=== PATIENT | female | born 1985 | race Two or more races ===

== ENCOUNTER 2018-06-17 17:12 | Emergency (ER) | payer OTHER ==
[~2018-06-17] VITALS: Ht 162.6 cm; Wt 63.5 kg
[2018-06-17 18:29] LABS: Basophils # (auto) 0 uL; Basophils % (auto) 0.6 % (0.0-2.0); Eosinophils # (auto) 0.2 uL; Eosinophils % (auto) 3.1 % (0.0-7.0); Hematocrit 39.7 % (36.0-46.0); Hemoglobin 13.6 g/dL (12.2-16.2); Lymphocytes # (auto) 1.4 uL; Lymphocytes % (auto) 18.6 % (10.0-50.0); Mean Corpuscular Hemoglobin 32.6 pg (28.0-32.0); Mean Corpuscular Hgb Conc. 34.3 g/dL (32.0-36.0); Monocytes # (auto) 0.5 uL; Monocytes % (auto) 6.7 % (0.0-12.0); Neutrophils # (auto) 5.5 uL; Platelet Count (auto) 153 10^3/uL (140-450); Red Blood Cells 4.18 10^6/uL (4.0-5.20); Red Cell Distribution Width 12.6 % (11.8-14.3); White Blood Cell 7.7 10^3/uL (4.4-10.8)
[2018-06-17 21:30] VITALS: BP 128/52
== END 2018-06-17 21:40 | disposition home or self-care (01) ==
LOC: ER 17:12
DX: O99.331 Smoking (tobacco) complicating pregnancy, first trimester (principal); O26.891 Other specified pregnancy related conditions, first trimester; Z3A.01 Less than 8 weeks gestation of pregnancy; Z88.0 Allergy status to penicillin
CPT/HCPCS: 36415; 76801; 84702; 85025

== ENCOUNTER 2018-10-27 17:27 | Emergency (ER) | payer MEDICAID, OTHER ==
[~2018-10-27] VITALS: Ht 162.6 cm; Wt 68.9 kg
[2018-10-27 17:45] VITALS: BP 112/64
== END 2018-10-27 21:55 | disposition home or self-care (01) ==
LOC: ER 17:27
DX: O26.892 Other specified pregnancy related conditions, second trimester (principal); S39.012A Strain of muscle, fascia and tendon of lower back, initial encounter; O99.332 Smoking (tobacco) complicating pregnancy, second trimester; Z3A.26 26 weeks gestation of pregnancy; X58.XXXA Exposure to other specified factors, initial encounter; Y93.89 Activity, other specified; Y99.8 Other external cause status; Y92.89 Other specified places as the place of occurrence of the external cause
CPT/HCPCS: 93970

== ENCOUNTER 2021-02-01 20:17 | Emergency (ER) | payer MEDICAID ==
[~2021-02-01] VITALS: Ht 162.6 cm; Wt 70.5 kg
[2021-02-01 22:09] LABS: Basophils # (auto) 0 10 ^3/uL (0-0.2); Basophils % (auto) 0.4 % (0.0-2.0); Eosinophils # (auto) 0.2 10 ^3/uL (0-0.8); Eosinophils % (auto) 2.5 % (0.0-7.0); Hematocrit 39.6 % (36.0-46.0); Hemoglobin 13.4 g/dL (12.2-16.2); Lymphocytes # (auto) 1.9 10 ^3/uL (0.4-5.4); Mean Corpuscular Hemoglobin 31.4 pg (28.0-32.0); Mean Corpuscular Hgb Conc. 33.9 g/dL (32.0-36.0); Mean Corpuscular Volume 92.6 fL (80.0-100.0); Monocytes # (auto) 0.6 10 ^3/uL (0-1.3); Monocytes % (auto) 6.3 % (0.0-12.0); Neutrophils # (auto) 6.2 10 ^3/uL (1.6-8.6); Neutrophils % (auto) 69.8 % (37.0-80.0); Red Blood Cells 4.27 10^6/uL (4.0-5.20); Red Cell Distribution Width 12.4 % (11.8-14.3); White Blood Cell 8.9 10^3/uL (4.4-10.8)
[2021-02-01 22:26] LABS: Albumin 3.3 g/dL (3.4-5.0); Calcium 8.8 mg/dL (8.5-10.1); Potassium 3.9 mmol/L (3.5-5.1)
[2021-02-01 22:28] LABS: BUN/Creatinine Ratio 21.2
[2021-02-01 22:31] LABS: Bilirubin, Total 0.1 mg/dL (0.2-1.0)
[2021-02-02] VITALS: BP 112/72
== END 2021-02-02 00:24 | disposition left against medical advice (07) ==
LOC: ER 20:20
DX: O26.891 Other specified pregnancy related conditions, first trimester (principal); R10.9 Unspecified abdominal pain; R53.1 Weakness; Z3A.01 Less than 8 weeks gestation of pregnancy; Z53.21 Procedure and treatment not carried out due to patient leaving prior to being seen by health care provider
CPT/HCPCS: 36415; 80053; 84702; 85025

== ENCOUNTER 2024-04-24 11:11 | Inpatient (IN) | payer MEDICAID ==
[~2024-04-24] VITALS: Ht 162.6 cm; Wt 69.4 kg
--- NOTE | 2024-04-24 11:42 | ED.PDOC ---
GI ASSESSMENT HPI Comments HPI: Poor Historian. 39-year-old female presents to emergency department for evaluation the blood in his stool that started yesterday and got worse today. She showed me a picture of brown stool that is mixed with blood in and partially melanotic. Denies any associated abdominal pain. VITALS: Temp: 97.6 F RR: 18 02 sat : 99 % on room air HR: 76 BP: 129/59 PMH: denies PSH: uterine rupture Social history: denies tobacco use, denies ETOH use, endorses drug use (marijuana) Medications: denies, Allergies: penicillins REVIEW OF SYSTEMS: CONSTITUTIONAL: Denies acute: fever, diaphoresis, chills, generalized weakness. HEAD: Denies acute: headache, photophobia Eyes: Denies acute: Double vision, vision loss, eye pain, eye discharge. EARS: Denies acute: tinnitus, hearing loss, ear discharge, ear pain, THROAT: Denies acute: sore throat, swelling, difficulty swallowing , pain with swallowing, change in voice. NECK: Denies acute: neck pain, neck swelling, stiff neck. HEART: Denies acute : chest pain, palpitations, LUNGS: Denies acute: SOB, wheezing, cough, hemoptysis ABDOMEN: Denies acute: abdominal pain, Nausea, Vomiting, diarrhea, , hematemesis, SKIN: Denies acute: rash, redness, lesions, itchiness. EXTREMITIES: Denies acute: calf pain, numbness, tingling, weakness, denies pain in extremity. Denies acute: Low back pain. Neuro: Denies acute: focal neurological deficit, motor or sensory focal neurological deficit, tremors, seizure like activity, confusion, dizziness, change in mental status, loss of bowel or bladder function, cauda equina like symptoms. : Denies acute: dysuria, hematuria, flank pain, increase in urinary frequency. PSYCH: Denies acute: hallucination, suicidal ideation, homicidal ideation. FEMALE: Denies acute: abnormal vaginal bleeding, foul odor, unusual discharge. PHYSICAL EXAM: General: no acute distress, awake and alert. Head: normocephalic, atraumatic. Neck: supple, trachea is midline, no swelling. Throat: Normal phonation. Eyes:, no erythema, no purulent discharge, no proptosis, no icterus. Heart: regular rate, regular rhythm, no significant murmur appreciated. Lungs: no apparent respiratory distress, Able to speak in full sentences. No wheezing, no rhonchi, no crackles. No stridors Clear to auscultation bilaterally. Abdomen: non tender to palpation, non distended, soft, no guarding, no rebound, + bowel sounds. Neuro: Awake, Alert, oriented to name, self, situation, follows commands GCS=15. Speech is normal. Skin: no petechia, no purpura, no cyanosis, non-pale, not jaundice. Lower extremities: --no - Pitting edema no deformity, no focal swelling, no calf TTP. Makes eye contact. moves all four extremities. Face: no apparent facial droop. Ambulating in the ED independently. 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 Was a procedure done?: No X-Ray, Labs, Meds, VS Vital Signs Date Time Temp Pulse Resp B/P (MAP) Pulse Ox O2 Delivery O2 Flow Rate FiO2 04/24/24 14:40 67 18 163/92 (115) 04/24/24 11:51 97.4 76 16 168/65 (99) 98 97.4 04/24/24 11:51 76 16 98 Room Air 04/24/24 11:33 97.6 76 18 129/59 (82) 99 Lab Test 04/24/24 11:45 04/24/24 11:35 Range/Units White Blood Count 5.6 4.4-10.8 10^3/uL Red Blood Count 4.32 4.0-5.20 10^6/uL Hemoglobin 13.0 12.2-16.2 g/dL Hematocrit 39.4 36.0-46.0 % Mean Corpuscular Volume 91.1 80.0-100.0 fL Mean Corpuscular Hemoglobin 30.1 28.0-32.0 pg Mean Corpuscular Hemoglobin Concent 33.1 32.0-36.0 g/dL Red Cell Distribution Width 13.3 11.8-14.3 % Platelet Count 161 140-450 10^3/uL Mean Platelet Volume 8.2 6.9-10.8 fL Neutrophils (%) (Auto) 70.2 37.0-80.0 % Lymphocytes (%) (Auto) 20.2 10.0-50.0 % Monocytes (%) (Auto) 5.3 0.0-12.0 % Eosinophils (%) (Auto) 3.5 0.0-7.0 % Basophils (%) (Auto) 0.8 0.0-2.0 % Neutrophils # (Auto) 3.9 1.6-8.6 10 ^3/uL Lymphocytes # (Auto) 1.1 0.4-5.4 10 ^3/uL Monocytes # (Auto) 0.3 0-1.3 10 ^3/uL Eosinophils # (Auto) 0.2 0-0.8 10 ^3/uL Basophils # (Auto) 0 0-0.2 10 ^3/uL Nucleated Red Blood Cells 0.2 % Sodium Level 139 136-145 mmol/L Potassium Level 4.3 3.5-5.1 mmol/L Chloride Level 109 H 98-107 mmol/L Carbon Dioxide Level 24 20-31 mmol/L Anion Gap 6 5-15 Blood Urea Nitrogen 10 9-23 mg/dL Creatinine 0.74 0.550-1.02 mg/dL Glomerular Filtration Rate Calc 105 >90 mL/min BUN/Creatinine Ratio 13.5 10.0-20.0 Serum Glucose 98 74-106 mg/dL Calcium Level 9.5 8.7-10.4 mg/dL Magnesium Level 2.1 1.6-2.6 mg/dL Total Bilirubin 0.5 0.2-1.0 mg/dL Aspartate Amino Transferase (AST) 12 L 13-40 U/L Alanine Aminotransferase (ALT) 12 7-40 U/L Alkaline Phosphatase 78 46-116 U/L Total Protein 7.3 5.7-8.2 g/dL Albumin 4.7 3.2-4.8 g/dL Beta HCG, Quantitative 1.6 1.5-4.2 mIU/mL Urine Color Light-yellow Yellow Urine Clarity Clear Clear Urine pH 6.5 5.0-9.0 Urine Specific [place] 1.015 1.001-1.035 Urine Protein Negative Negative Urine Ketones Negative Negative Urine Blood Negative Negative /uL Urine Nitrite Negative Negative Urine Bilirubin Negative Negative Urine Urobilinogen Normal Negative mg/dL Urine Leukocyte Esterase Negative Negative /uL Urine RBC 1 0 - 4 /hpf Urine WBC 1 0 - 5 /hpf Urine Squamous Epithelial Cells Few <5 /hpf Urine Bacteria Mod H None Seen /hpf Urine Mucus Few None Seen Urine Glucose Normal Normal mg/dL Current Medications Medications (Trade) Dose Ordered Sig/Nelda Route Start Time Stop Time Status Last Admin Pantoprazole Sodium (Protonix) 40 mg ONCE ONCE IV 04/24/24 11:45 04/24/24 11:46 DC 04/24/24 11:45 Sodium Chloride 1,000 ml @ 1,000 mls/hr Q1H ONCE IV 04/24/24 11:45 04/24/24 12:44 DC 04/24/24 11:55 [place] [id number] Ph: [phone] DIAGNOSTIC IMAGING Diagnostic Imaging Report : [id number] Signed PATIENT: ESPERANZA GREENE ACCT: [id number] UNIT: [id number] : 1985 LOC: ER ROOM / BED: / AGE / SEX: 39 / F ADM STATUS: REG ER SERVICE 1139 ORDERING PHYSICIAN: MYLES FLOR DO PROCEDURE(s): ABPL - CT AB PEL WO CON-NO ORAL OR IV REASON: RECTAL BLEED ORDER NUMBER(s): [id number], ACCESSION NUMBER(s): [id number] CT ABDOMEN AND PELVIS WITHOUT CONTRAST CLINICAL HISTORY: RECTAL BLEED TECHNIQUE: Multiple contiguous axial images of the abdomen and pelvis without intravenous contrast. The images were reformatted degenerate coronal and sagittal reconstructions. All CT scans at this medical facility are performed using dose modulation techniques as appropriate to a performed exam including the following:Automated exposure control was utilized; adjustment of the MA and/or KV according to patient size; and use of iterative reconstruction technique. Radiation Dose Information: CT Dose: CTDI volume is 11.82 mGy. Dose-length product is 607.22 mGy*cm Comparison: None FINDINGS: Evaluation of the abdomen and pelvis is limited without intravenous contrast. The liver, gallbladder, pancreas, kidneys, adrenal glands, and spleen appear within normal limits. There is no gross evidence of abdominal lymphadenopathy. There is no free fluid or free air. The stomach grossly appears unremarkable. The small and large bowel loops demonstrate normal caliber and appear within normal limits.. The abdominal aorta and IVC appear within normal limits. The bladder appears unremarkable for the degree of distention. Pelvic organ appears within normal limits. There is no gross evidence of a pelvic mass. There is no free fluid collection. Lung bases are clear. There is no acute osseous abnormality. IMPRESSION: 1. There is no acute process in the abdomen and pelvis. HS:Y ATED BY: JORGE COLLADO MD DICTATED DATE/TIME: 04/24/24 130 SIGNED BY: JORGE COLLADO MD SIGNED DATE/TIME: 04/24/24 1306 CC: Patient Education/Counseling: Diagnosis, Treatment Family Education/Counseling: No Family Present Comments MDM: Patient presented with the above HPI.----- blood in stool-- -workup was initiated. patient was found with the above mentioned diagnosis. the following medications were ordered: IV fluids, pantoprazole the following tests were ordered: CT abdomen and pelvis without contrast, stool occult blood, beta HCG, type and screen, magnesium, UA, CBC, CMP Patient ED course and VS have been stabilized. Patient has been reassessed in the ED and remained in a stable condition. Patient has been observed in the ED adequate length of time to insure improvement/stability. Escalation of care considered: Consideration of escalation to observation or admission. patient was ADMITTED to the medicine team for further evaluation and treatment of their presentation. All the reports of any imaging studies that were ordered by myself were reviewed by myself. Departure 1 Departure Time of Disposition: 14:15 Impression: Primary Impression: GI bleed Additional Impression: Rectal bleed Disposition: ADMITTED INPATIENT Admit to: [facility] Condition: Guarded Discharged With: Self I personally scribed for MYLES FLOR DO ([facility]) on 04/24/24 at 11:42. Electronically submitted by Rere Morrison ([facility]). I personally scribed for MYLES FLOR DO ([facility]) on 04/24/24 at 12:08. Electronically submitted by Rere Morrison ([facility]). I personally scribed for MYLES FLOR DO ([facility]) on 04/24/24 at 12:11. Electronically submitted by Rere Morrison ([facility] I personally scribed for MYLES FLOR DO ([facility]) on 04/24/24 at 18:10. Electronically submitted by Rere Morrison ([facility] MYLES FLOR DO Apr 24, 2024 11:42
[2024-04-24] MEDS: PANTOPRAZOLE 40 MG/10 ML VIAL INJ IV ONE (11:45)
[2024-04-24] MEDS: SODIUM CHLORIDE 0.9% 1,000 ML IV ONE (11:55)
[2024-04-24 11:57] LABS: Basophils # (auto) 0 10 ^3/uL (0-0.2); Basophils % (auto) 0.8 % (0.0-2.0); Eosinophils # (auto) 0.2 10 ^3/uL (0-0.8); Eosinophils % (auto) 3.5 % (0.0-7.0); Hematocrit 39.4 % (36.0-46.0); Lymphocytes # (auto) 1.1 10 ^3/uL (0.4-5.4); Lymphocytes % (auto) 20.2 % (10.0-50.0); Mean Corpuscular Hemoglobin 30.1 pg (28.0-32.0); Mean Corpuscular Hgb Conc. 33.1 g/dL (32.0-36.0); Mean Corpuscular Volume 91.1 fL (80.0-100.0); Monocytes # (auto) 0.3 10 ^3/uL (0-1.3); Monocytes % (auto) 5.3 % (0.0-12.0); Neutrophils # (auto) 3.9 10 ^3/uL (1.6-8.6); Neutrophils % (auto) 70.2 % (37.0-80.0); Nucleated Red Blood Cells % 0.2 %; Platelet Count (auto) 161 10^3/uL (140-450); Red Blood Cells 4.32 10^6/uL (4.0-5.20); Red Cell Distribution Width 13.3 % (11.8-14.3); White Blood Cell 5.6 10^3/uL (4.4-10.8)
[2024-04-24 12:18] LABS: Alanine Aminotransferase 12 U/L (7-40); Alkaline Phosphatase 78 U/L (46-116); Anion Gap 6 (5-15); BUN/Creatinine Ratio 13.5 (10.0-20.0); Blood Urea Nitrogen 10 mg/dL (9-23); Calcium 9.5 mg/dL (8.7-10.4); Carbon Dioxide 24 mmol/L (20-31); Glucose 98 mg/dL (74-106); Magnesium 2.1 mg/dL (1.6-2.6); Potassium 4.3 mmol/L (3.5-5.1); Sodium 139 mmol/L (136-145)
[2024-04-24 12:19] LABS: Albumin 4.7 g/dL (3.2-4.8); Bilirubin, Total 0.5 mg/dL (0.2-1.0); Total Protein 7.3 g/dL (5.7-8.2)
[2024-04-24 12:35] LABS: Aspartate Aminotransferase 12 U/L (13-40); Chloride 109 mmol/L (98-107)
--- NOTE | 2024-04-24 13:07 | DVH ---
CT ABDOMEN AND PELVIS WITHOUT CONTRAST CLINICAL HISTORY: RECTAL BLEED TECHNIQUE: Multiple contiguous axial images of the abdomen and pelvis without intravenous contrast. The images were reformatted degenerate coronal and sagittal reconstructions. All CT scans at this medical facility are performed using dose modulation techniques as appropriate t o a performed exam including the following:Automated exposure control was utilized; adjustment of the MA and/or KV according to patient size; and use of iterative reconstruction technique. Radiation Dose Information: CT Dose: CTDI volume is 11.82 mGy. Dose-length product is 607.22 mGy*cm Comparison: None FINDINGS: Evaluation of the abdomen and pelvis is limited without intravenous contrast. The liver, gallbladder, pancreas, kidneys, adrenal glands, and spleen appear within normal limits. There is no gross evidence of abdominal lymphadenopathy. There is no free fluid or free air. The stomach grossly appears unremarkable. The small and large bowel loops demonstrate normal caliber and appear within normal limits.. The abdominal aorta and IVC appear within normal limits. The bladder appears unremarkable for the degree of distention. Pelvic organ appears within normal [place] its. There is no gross evidence of a pelvic mass. There is no free fluid collection. Lung bases are clear. There is no acute osseous abnormality. IMPRESSION: 1. There is no acute process in the abdomen and pelvis. HS:Y
[2024-04-24 14:44] LABS: Urine Bacteria MOD /hpf (None Seen); Urine Blood Negative /uL (Negative); Urine Clarity Clear (Clear); Urine Color Light-Yellow (Yellow); Urine Mucus FEW (None Seen); Urine Protein, UAD Negative (Negative); Urine Specific Gravity 1.015 (1.001-1.035); Urine Urobilinogen Normal (Negative); Urine WBC 1 /hpf (0 - 5); Urine pH 6.5 (5.0-9.0)
[2024-04-24] MEDS ORDERED: ACETAMINOPHEN 325 MG TAB PO PRN (16:00)
[2024-04-24] MEDS ORDERED: HYDROcodone-ACET 5/325MG TAB PO PRN (16:00)
[2024-04-24] MEDS ORDERED: ONDANSETRON HCL 4 MG/2 ML VIAL IV PRN (16:00)
[2024-04-24] MEDS ORDERED: MORPHINE SULFATE INJ 2 MG/ml SYRG IV PRN (16:00)
--- NOTE | 2024-04-24 16:02 | DVHHP2 ---
History of Present Illness Reason for Visit: Blood in stool History of Present Illness Wanda Bryson is a 39-year-old female with past medical history of 3 C- sections and a uterine rupture who presents to the ED for blood in her stool x1 day, 2 bowel movements. Patient reports that she has been bloated for 3 days. She says that she has been stressed over money and has been anxious as well. She reports that her son due to some intestinal issue. Patient reports that she smokes less than 1 pack per day, drinks 4 beers twice a week, and smokes marijuana. Patient denies fever, chills, chest pain, shortness of breath, nausea, vomiting, lightheadedness, and dizziness. Past Surgical History: Family History: Arthritis, Hypertension, Other (Hypertension mom. dad and sister arthritis) Review of Systems Constitutional: No: Fever, Chills, Sweats, Weakness, Malaise, Other Eyes: No: Pain, Vision change, Conjunctivae inflammation, Eyelid inflammation, Other, Redness ENT: No: Ear pain, Ear discharge, Nose pain, Nose discharge, Nose congestion, Mouth pain, Mouth swelling, Throat pain, Throat swelling, Other Respiratory: No: Cough, Dry, Shortness of breath, SOB with excertion, Wheezing, Hemoptysis, Pleuritic Pain, Sputum, Wheezing, Other Gastrointestinal: Melena, Hematochezia, Other (Bloating); No: Nausea, Vomiting, Abdominal Pain, Diarrhea, Constipation Genitourinary: No Dysuria, No Frequency, No Incontinence, No Hematuria, No Retention, No Other Musculoskeletal: No: other, neck pain, shoulder pain, arm pain, back pain, hand pain, leg pain, foot pain Skin: Other (Patient reports welts throughout body from being outdoor at her mom's with cats); No: Rash, Lesions, Jaundice, Bruising Neurological: No: Weakness, Numbness, Incoordination, Change in speech, Confusion, Seizures, Other Allergies: Coded Allergies: Penicillins (Verified Allergy, Unknown, 02/01/21) Exam Vital Signs Vital Signs Date Time Temp Pulse Resp B/P (MAP) Pulse Ox O2 Delivery O2 Flow Rate FiO2 04/24/24 14:40 67 18 163/92 (115) 04/24/24 11:51 97.4 98 97.4 04/24/24 11:51 Room Air General Appearance: Alert, Oriented X3, Cooperative, No acute distress HEENT: Atraumatic, PERRLA, EOMI, Mucous membr. moist/pink Respiratory: Clear to auscultation, Normal air movement Cardiovascular: Regular rate, Normal S1, Normal S2, No murmurs Abdominal: Normal bowel sounds, Soft, No tenderness, No hepatospenomegaly, No masses, Other (Abdominal discomfort bloating) Extremities: No clubbing, No cyanosis, No edema, Normal pulses, No tenderness/swelling Skin: No rashes, No breakdown, No significant lesion Neuro: Normal gait, Normal speech, Strength at 5/5 X4 ext, Normal tone, Sensation intact Psych/Mental Status: Mental status NL, Mood NL Labs/Xrays Labs Test 04/24/24 11:45 04/24/24 11:35 Range/Units White Blood Count 5.6 4.4-10.8 10^3/uL Red Blood Count 4.32 4.0-5.20 10^6/uL Hemoglobin 13.0 12.2-16.2 g/dL Hematocrit 39.4 36.0-46.0 % Mean Corpuscular Volume 91.1 80.0-100.0 fL Mean Corpuscular Hemoglobin 30.1 28.0-32.0 pg Mean Corpuscular Hemoglobin Concent 33.1 32.0-36.0 g/dL Red Cell Distribution Width 13.3 11.8-14.3 % Platelet Count 161 140-450 10^3/uL Mean Platelet Volume 8.2 6.9-10.8 fL Neutrophils (%) (Auto) 70.2 37.0-80.0 % Lymphocytes (%) (Auto) 20.2 10.0-50.0 % Monocytes (%) (Auto) 5.3 0.0-12.0 % Eosinophils (%) (Auto) 3.5 0.0-7.0 % Basophils (%) (Auto) 0.8 0.0-2.0 % Neutrophils # (Auto) 3.9 1.6-8.6 10 ^3/uL Lymphocytes # (Auto) 1.1 0.4-5.4 10 ^3/uL Monocytes # (Auto) 0.3 0-1.3 10 ^3/uL Eosinophils # (Auto) 0.2 0-0.8 10 ^3/uL Basophils # (Auto) 0 0-0.2 10 ^3/uL Nucleated Red Blood Cells 0.2 % Sodium Level 139 136-145 mmol/L Potassium Level 4.3 3.5-5.1 mmol/L Chloride Level 109 H 98-107 mmol/L Carbon Dioxide Level 24 20-31 mmol/L Anion Gap 6 5-15 Blood Urea Nitrogen 10 9-23 mg/dL Creatinine 0.74 0.550-1.02 mg/dL Glomerular Filtration Rate Calc 105 >90 mL/min BUN/Creatinine Ratio 13.5 10.0-20.0 Serum Glucose 98 74-106 mg/dL Calcium Level 9.5 8.7-10.4 mg/dL Magnesium Level 2.1 1.6-2.6 mg/dL Total Bilirubin 0.5 0.2-1.0 mg/dL Aspartate Amino Transferase (AST) 12 L 13-40 U/L Alanine Aminotransferase (ALT) 12 7-40 U/L Alkaline Phosphatase 78 46-116 U/L Total Protein 7.3 5.7-8.2 g/dL Albumin 4.7 3.2-4.8 g/dL Beta HCG, Quantitative 1.6 1.5-4.2 mIU/mL Urine Color Light-yellow Yellow Urine Clarity Clear Clear Urine pH 6.5 5.0-9.0 Urine Specific [place] 1.015 1.001-1.035 Urine Protein Negative Negative Urine Ketones Negative Negative Urine Blood Negative Negative /uL Urine Nitrite Negative Negative Urine Bilirubin Negative Negative Urine Urobilinogen Normal Negative mg/dL Urine Leukocyte Esterase Negative Negative /uL Urine RBC 1 0 - 4 /hpf Urine WBC 1 0 - 5 /hpf Urine Squamous Epithelial Cells Few <5 /hpf Urine Bacteria Mod H None Seen /hpf Urine Mucus Few None Seen Urine Glucose Normal Normal mg/dL CT ABDOMEN AND PELVIS WITHOUT CONTRAST CLINICAL HISTORY: RECTAL BLEED TECHNIQUE: Multiple contiguous axial images of the abdomen and pelvis without intravenous contrast. The images were reformatted degenerate coronal and sagittal reconstructions. All CT scans at this medical facility are performed using dose modulation love hniques as appropriate to a performed exam including the following:Automated exposure control was utilized; adjustment of the MA and/or KV according to patient size; and use of iterative reconstruction technique. Radiation Dose Information: CT Dose: CTDI volume is 11.82 mGy. Dose-length product is 607.22 mGy*cm Comparison: None FINDINGS: Evaluation of the abdomen and pelvis is limited without intravenous contrast. The liver, gallbladder, pancreas, kidneys, adrenal glands, and spleen appear within normal limits. There is no gross evidence of abdominal lymphadenopathy. There is no free fluid or free air. The stomach grossly appears unremarkable. The small and large bowel loops demonstrate normal caliber and appear within normal limits.. The abdominal aorta and IVC appear within normal limits. The bladder appears unremarkable for the degree of distention. Pelvic organ a ppears within normal limits. There is no gross evidence of a pelvic mass. There is no free fluid collection. Lung bases are clear. There is no acute osseous abnormality. IMPRESSION: 1. There is no acute process in the abdomen and pelvis. Assessment/Plan Assessment/Plan Assessment/Plan: GIB GI cx ct a/p noted labs pain management antiemetics ua am labs lipid panel hcg done by ER antihypertensives - hypertension noted on vs in ed Polysubstance abuse Counseled patient on cessation of polysubstance use Offered nicotine patch FEN/PPX NPO IVf PUD ppx protonix DVT ppx not indicated patient ambulating - bleeding Admit to med surg Discussed plan of care with patient and nurse No home medications to reconcile Plan discussed with: Patient My Orders Orders - JILL DIAZ Procedure Category Date Status Time Admit ADMIT 04/24/24 Transmitted 15:52 Allergies ZACK 04/24/24 Transmitted 15:52 Code Status CODE 04/24/24 Transmitted 15:52 0.9% Ns 1000 Ml PHA 04/24/24 Transmitted 16:00 Hydrocodone-Acet PHA 04/24/24 Transmitted 5/325mg Tab ([place] 16:00 Ondansetron Hcl PHA 04/24/24 Transmitted (Zofran) 16:00 Complete Blood Count LAB 04/25/24 Verified 04:00 Comprehensive LAB 04/25/24 Verified Metabolic Panel 04:00 Npo (Nothing By DIET 04/24/24 Transmitted Mouth) Diet Dinner Acetaminophen Tablet PHA 04/24/24 Transmitted (Tylenol Tablet) 16:00 Morphine Sulfate PHA 04/24/24 Transmitted Injection 16:00 * Gi D[facility] [employer] Specialist CONS 04/24/24 Transmitted 15:52 Pantoprazole PHA 04/25/24 Transmitted (Protonix) 10:00 Date of Service: Apr 24, 2024 Billing Provider: THON,SALINA K THIRD OFFICER Common Visit Codes: 62172-[id number] INP/OBS CARE (MOD) JILL DIAZ THIRD OFFICER Apr 24, 2024 16:02
[2024-04-24] MEDS ORDERED: hydrALAZINE HCL 20 MG/ML VL IV PRN (16:15)
[2024-04-24] MEDS: SODIUM CHLORIDE 0.9% 1,000 ML IV SCH (16:17)
[2024-04-24] MEDS: DEXTROSE 50% SYRINGE 50 ML IV ONE (22:24)
[2024-04-24 22:37] VITALS: BP 148/85; PULSE 61; RESP 20; TEMP 97.5; O2SAT 97
[2024-04-25 05:00] VITALS: BP 121/78; PULSE 72; RESP 19; TEMP 97.7; O2SAT 96
[2024-04-25 07:21] LABS: Basophils # (auto) 0 10 ^3/uL (0-0.2); Basophils % (auto) 0.9 % (0.0-2.0); Eosinophils # (auto) 0.3 10 ^3/uL (0-0.8); Eosinophils % (auto) 5.1 % (0.0-7.0); Hematocrit 36.8 % (36.0-46.0); Hemoglobin 12.5 g/dL (12.2-16.2); Lymphocytes # (auto) 1.5 10 ^3/uL (0.4-5.4); Lymphocytes % (auto) 27.8 % (10.0-50.0); Mean Corpuscular Hemoglobin 30.9 pg (28.0-32.0); Mean Corpuscular Hgb Conc. 34.1 g/dL (32.0-36.0); Mean Corpuscular Volume 90.6 fL (80.0-100.0); Monocytes # (auto) 0.3 10 ^3/uL (0-1.3); Monocytes % (auto) 5.6 % (0.0-12.0); Neutrophils # (auto) 3.3 10 ^3/uL (1.6-8.6); Neutrophils % (auto) 60.6 % (37.0-80.0); Nucleated Red Blood Cells % 0.1 %; Platelet Count (auto) 155 10^3/uL (140-450); Red Blood Cells 4.06 10^6/uL (4.0-5.20); White Blood Cell 5.4 10^3/uL (4.4-10.8)
[2024-04-25 07:25] LABS: Alanine Aminotransferase 12 U/L (7-40); Albumin 4.2 g/dL (3.2-4.8); Alkaline Phosphatase 72 U/L (46-116); Anion Gap 7 (5-15); BUN/Creatinine Ratio 9.7 (10.0-20.0); Calcium 9.5 mg/dL (8.7-10.4); Carbon Dioxide 23 mmol/L (20-31); Glucose 88 mg/dL (74-106); Potassium 3.9 mmol/L (3.5-5.1); Sodium 139 mmol/L (136-145)
[2024-04-25 07:26] LABS: Bilirubin, Total 0.8 mg/dL (0.2-1.0); Total Protein 6.5 g/dL (5.7-8.2)
[2024-04-25 07:28] LABS: Aspartate Aminotransferase 12 U/L (13-40); Blood Urea Nitrogen 7 mg/dL (9-23); Chloride 109 mmol/L (98-107)
[2024-04-25 09:00] VITALS: BP 112/70; PULSE 61; RESP 16; TEMP 97.7; O2SAT 98
[2024-04-25] MEDS ORDERED: PANTOPRAZOLE 40 MG/10 ML VIAL INJ IV SCH (10:00)
--- NOTE | 2024-04-25 17:38 | DVHDS2 ---
Discharge Summary Date of Admission Apr 24, 2024 at 15:52 Date of Discharge: Apr 25, 2024 Labs/Diagnostic Data: Laboratory Results Test 04/25/24 06:10 04/24/24 11:45 04/24/24 11:35 White Blood Count 5.4 10^3/uL (4.4-10.8) Red Blood Count 4.06 10^6/uL (4.0-5.20) Hemoglobin 12.5 g/dL (12.2-16.2) Hematocrit 36.8 % (36.0-46.0) Mean Corpuscular Volume 90.6 fL (80.0-100.0) Mean Corpuscular Hemoglobin 30.9 pg (28.0-32.0) Mean Corpuscular Hemoglobin Concent 34.1 g/dL (32.0-36.0) Red Cell Distribution Width 13.0 % (11.8-14.3) Platelet Count 155 10^3/uL (140-450) Mean Platelet Volume 8.4 fL (6.9-10.8) Neutrophils (%) (Auto) 60.6 % (37.0-80.0) Lymphocytes (%) (Auto) 27.8 % (10.0-50.0) Monocytes (%) (Auto) 5.6 % (0.0-12.0) Eosinophils (%) (Auto) 5.1 % (0.0-7.0) Basophils (%) (Auto) 0.9 % (0.0-2.0) Neutrophils # (Auto) 3.3 10 ^3/uL (1.6-8.6) Lymphocytes # (Auto) 1.5 10 ^3/uL (0.4-5.4) Monocytes # (Auto) 0.3 10 ^3/uL (0-1.3) Eosinophils # (Auto) 0.3 10 ^3/uL (0-0.8) Basophils # (Auto) 0 10 ^3/uL (0-0.2) Nucleated Red Blood Cells 0.1 % Sodium Level 139 mmol/L (136-145) Potassium Level 3.9 mmol/L (3.5-5.1) Chloride Level 109 mmol/L (98-107) Carbon Dioxide Level 23 mmol/L (20-31) Anion Gap 7 (5-15) Blood Urea Nitrogen 7 mg/dL (9-23) Creatinine 0.72 mg/dL (0.550-1.02) Glomerular Filtration Rate Calc 109 mL/min (>90) BUN/Creatinine Ratio 9.7 (10.0-20.0) Serum Glucose 88 mg/dL (74-106) Calcium Level 9.5 mg/dL (8.7-10.4) Total Bilirubin 0.8 mg/dL (0.2-1.0) Aspartate Amino Transferase (AST) 12 U/L (13-40) Alanine Aminotransferase (ALT) 12 U/L (7-40) Alkaline Phosphatase 72 U/L (46-116) Total Protein 6.5 g/dL (5.7-8.2) Albumin 4.2 g/dL (3.2-4.8) Magnesium Level 2.1 mg/dL (1.6-2.6) Beta HCG, Quantitative 1.6 mIU/mL (1.5-4.2) Urine Color Light-yellow (Yellow) Urine Clarity Clear (Clear) Urine pH 6.5 (5.0-9.0) Urine Specific [place] 1.015 (1.001-1.035) Urine Protein Negative (Negative) Urine Ketones Negative (Negative) Urine Blood Negative /uL (Negative) Urine Nitrite Negative (Negative) Urine Bilirubin Negative (Negative) Urine Urobilinogen Normal mg/dL (Negative) Urine Leukocyte Esterase Negative /uL (Negative) Urine RBC 1 /hpf (0 - 4) Urine WBC 1 /hpf (0 - 5) Urine Squamous Epithelial Cells Few /hpf (<5) Urine Bacteria Mod /hpf (None Seen) Urine Mucus Few (None Seen) Urine Glucose Normal mg/dL (Normal) Other Laboratory Tests 04/25/24 06:10 Brief Hx & Hospital Course: 59-year-old female with a known history of chronic tobacco use disorder, chronic marijuana use initially presented to the hospital with blood in stool. Patient was eventually admitted CT abdomen and pelvis was done which shows no evidence of any acute pathology. Patient left against medical advice before completion of workup and treatment. Condition at Discharge: Undetermined Final Diagnosis/Problems List GI bleed Chronic tobacco use disorder Chronic marijuana use Secondary Diagnosis: Patient left against medical advice Discharge Disposition: [facility] Discharge Will this Physician continue t: No Discharge Statement: "Patient was advised to return to the ER or call 911 if any headaches, dizziness, shortness of breath, chest pain, abdominal pain, bleeding, fevers, or worsening of medical condition. Patient was counseled about treatment plan, medications, possible side effects, patientverbalized understanding. All questions were answered to the best of my ability. This discharge took greater then 30 minutes in planning, reviewing documentation, counseling the patient, and discussing with other team members." ASSESSMENT ASSESSMENT Assessment Date of Service: Apr 25, 2024 Billing Provider: KATHERINE PERSON MD Common Visit Codes: NOT BILLABLE KATHERINE PERSON MD Apr 25, 2024 17:38
--- NOTE | 2024-04-25 19:21 | DVHINCON2 ---
Date of service: Apr 25, 2024 (Late entry Patient was seen at 9:00 a.m.) Referring Physician Dr Isaacs Reason for Consultation Rectal bleeding History of Present Illness Wanda Bryson is a 39-year-old female with past medical history of 3 C- sections and a uterine rupture who presents to the ED for blood in her stool x1 day, 2 bowel movements. Patient reports that she has been bloated for 3 days. She says that she has been stressed over money and has been anxious as well. Patient also has history of constipation. She reports that her son due to some intestinal issue. Patient reports that she smokes less than 1 pack per day, drinks 4 beers twice a week, and smokes marijuana. Patient denies fever, chills, chest pain, shortness of breath, nausea, vomiting, lightheadedn ess, and dizziness. Patient showed me the pictures of her bowel movements. The stools itself were normal but patient had some bright red blood on the toilet paper likely from anorectal area She has not had any further bleeding or a bowel movement this morning. Her H&H is stable at 12.5 Past Medical History Alcohol and marijuana use Patient is a smoker Past Surgical History Past Surgical History: Family History: Arthritis, Hypertension, Other (Hypertension mom. dad and sister arthritis) Family History: Patient reports no known family medical history. Allergies: Coded Allergies: Penicillins (Verified Allergy, Unknown, 02/01/21) Home Meds No Active Prescriptions or Reported Meds Current Medications Current Medications Medications (Trade) Dose Ordered Sig/Nelda Route PRN Reason Start Time Stop Time Status Last Admin Pantoprazole Sodium (Protonix) 40 mg DAILY IV 04/25/24 10:00 04/25/24 12:07 DC Vital Signs Vital Signs Date Time Temp Pulse Resp B/P (MAP) Pulse Ox O2 Delivery O2 Flow Rate FiO2 04/25/24 11:46 Room Air* 0 21 04/25/24 09:00 97.7 61 16 112/70 (84) 98 97.7 Physical Exam General Appearance: Alert, Oriented X3, Cooperative, No acute distress HEENT: Atraumatic, PERRLA, EOMI, Mucous membr. moist/pink Respiratory: Clear to auscultation, Normal air movement Cardiovascular: Regular rate, Normal S1, Normal S2, No murmurs Abdominal: Normal bowel sounds, Soft, No tenderness, No hepatospenomegaly, No masses, Other (Abdominal discomfort bloating) Extremities: No clubbing, No cyanosis, No edema, Normal pulses, No tenderness/swelling Skin: No rashes, No breakdown, No significant lesion Neuro: Normal gait, Normal speech, Strength at 5/5 X4 ext, Normal tone, Sensation intact Psych/Mental Status: Mental status NL, Mood NL Labs/Diagnostic Data Labs Test 04/25/24 06:10 04/24/24 11:45 04/24/24 11:35 Range/Units White Blood Count 5.4 4.4-10.8 10^3/uL Red Blood Count 4.06 4.0-5.20 10^6/uL Hemoglobin 12.5 12.2-16.2 g/dL Hematocrit 36.8 36.0-46.0 % Mean Corpuscular Volume 90.6 80.0-100.0 fL Mean Corpuscular Hemoglobin 30.9 28.0-32.0 pg Mean Corpuscular Hemoglobin Concent 34.1 32.0-36.0 g/dL Red Cell Distribution Width 13.0 11.8-14.3 % Platelet Count 155 140-450 10^3/uL Mean Platelet Volume 8.4 6.9-10.8 fL Neutrophils (%) (Auto) 60.6 37.0-80.0 % Lymphocytes (%) (Auto) 27.8 10.0-50.0 % Monocytes (%) (Auto) 5.6 0.0-12.0 % Eosinophils (%) (Auto) 5.1 0.0-7.0 % Basophils (%) (Auto) 0.9 0.0-2.0 % Neutrophils # (Auto) 3.3 1.6-8.6 10 ^3/uL Lymphocytes # (Auto) 1.5 0.4-5.4 10 ^3/uL Monocytes # (Auto) 0.3 0-1.3 10 ^3/uL Eosinophils # (Auto) 0.3 0-0.8 10 ^3/uL Basophils # (Auto) 0 0-0.2 10 ^3/uL Nucleated Red Blood Cells 0.1 % Sodium Level 139 136-145 mmol/L Potassium Level 3.9 3.5-5.1 mmol/L Chloride Level 109 H 98-107 mmol/L Carbon Dioxide Level 23 20-31 mmol/L Anion Gap 7 5-15 Blood Urea Nitrogen 7 L 9-23 mg/dL Creatinine 0.72 0.550-1.02 mg/dL Glomerular Filtration Rate Calc 109 >90 mL/min BUN/Creatinine Ratio 9.7 L 10.0-20.0 Serum Glucose 88 74-106 mg/dL Calcium Level 9.5 8.7-10.4 mg/dL Total Bilirubin 0.8 0.2-1.0 mg/dL Aspartate Amino Transferase (AST) 12 L 13-40 U/L Alanine Aminotransferase (ALT) 12 7-40 U/L Alkaline Phosphatase 72 46-116 U/L Total Protein 6.5 5.7-8.2 g/dL Albumin 4.2 3.2-4.8 g/dL Magnesium Level 2.1 1.6-2.6 mg/dL Beta HCG, Quantitative 1.6 1.5-4.2 mIU/mL Urine Color Light-yellow Yellow Urine Clarity Clear Clear Urine pH 6.5 5.0-9.0 Urine Specific [place] 1.015 1.001-1.035 Urine Protein Negative Negative Urine Ketones Negative Negative Urine Blood Negative Negative /uL Urine Nitrite Negative Negative Urine Bilirubin Negative Negative Urine Urobilinogen Normal Negative mg/dL Urine Leukocyte Esterase Negative Negative /uL Urine RBC 1 0 - 4 /hpf Urine WBC 1 0 - 5 /hpf Urine Squamous Epithelial Cells Few <5 /hpf Urine Bacteria Mod H None Seen /hpf Urine Mucus Few None Seen Urine Glucose Normal Normal mg/dL CT SCAN ABD PELVIS IMPRESSION: 1. There is no acute process in the abdomen and pelvis. Problems(with codes): (1) Abdominal bloating (2) Constipation (3) Rectal bleed Plan/Recommendation Assessment plan Patient was given reassurance She likely has local anorectal bleeding We will give her Anusol HC ointment Increase fluid and fiber intake Colace or stool softeners Patient was given my contact information to follow up in my office in 2-4 weeks I will arrange outpatient elective colonoscopy for this patient and the patient is agreeable with this course of action Discharge planning as per hospitalist Plan discussed with: Patient, Other (Nurse Robby) EDGARDO DOBBINS MD Apr 25, 2024 19:20
== END 2024-04-25 10:43 | disposition left against medical advice (07) | DRG 253 ==
LOC: ER 11:11 → OVERFLOW 15:52 → EAST 15:54
DX: K92.2 Gastrointestinal hemorrhage, unspecified (principal); F12.90 Cannabis use, unspecified, uncomplicated; K59.00 Constipation, unspecified; Z53.29 Procedure and treatment not carried out because of patient's decision for other reasons; F17.210 Nicotine dependence, cigarettes, uncomplicated; Z98.891 History of uterine scar from previous surgery; Z82.49 Family history of ischemic heart disease and other diseases of the circulatory system; Z88.0 Allergy status to penicillin
CPT/HCPCS: 36415; 74176; 80053; 81001; 83735; 84702; 85025; 86850; 86900; 86901; G0378; J2470